=== PATIENT | male | born 1980 | race Caucasian/White ===

== ENCOUNTER 2020-11-19 13:54 | Emergency (ER) | payer OTHER ==
[~2020-11-19] VITALS: Ht 188 cm; Wt 85.0 kg
[2020-11-19 14:12] VITALS: BP 129/95
[2020-11-19] MEDS ORDERED: DOXY100C43 PO (15:53)
[2020-11-19] MEDS ORDERED: MUPI22OI30 TOP (15:53)
== END 2020-11-19 16:21 | disposition home or self-care (01) ==
LOC: ER 13:55
DX: L01.00 Impetigo, unspecified (principal); L03.115 Cellulitis of right lower limb; V98.8XXA Other specified transport accidents, initial encounter; Y93.89 Activity, other specified; Y92.89 Other specified places as the place of occurrence of the external cause; Y99.8 Other external cause status
CPT/HCPCS: 99283